=== PATIENT | male | born 1985 | race Caucasian/White ===

== ENCOUNTER 2023-01-03 12:40 | Emergency (ER) | payer MEDICAID ==
[~2023-01-03] VITALS: Ht 180.3 cm; Wt 97.5 kg
[2023-01-03 12:45] VITALS: BP_SYST 122; PULSE 76; RESP 17; TEMP 97; O2SAT 98
[2023-01-03 14:16] LABS: COVID19 ANTIGEN SOFIA FIA NEGATIVE (NEGATIVE)
[2023-01-03 14:22] LABS: INFLUENZA TYPE A Negative (NEGATIVE); INFLUENZA TYPE B NEGATIVE (NEGATIVE)
[2023-01-03] MEDS ORDERED: DEXAMETHASONE SOD PHOSPHATE 10 MG/ML VIAL IM ONE (15:45)
[2023-01-03] MEDS ORDERED: KETOROLAC TROMETHAMINE 60 MG/2 ML VIAL IM ONE (15:45)
[2023-01-03] MEDS ORDERED: guaiFENesin/DEXTROMETHORPHAN 10 ML UDC PO ONE (15:45)
[2023-01-03] MEDS ORDERED: GUAI5SYR PO (16:09)
[2023-01-03] MEDS ORDERED: IBUP-1971 PO (16:09)
[2023-01-03] MEDS ORDERED: ZIT250 PO (16:09)
[2023-01-03 16:21] VITALS: BP_SYST 122; PULSE 76; RESP 17; TEMP 97; O2SAT 98
== END 2023-01-03 16:24 | disposition home or self-care (01) ==
LOC: SED 12:40
DX: J40 Bronchitis, not specified as acute or chronic (principal); J02.9 Acute pharyngitis, unspecified; R05.9 Cough, unspecified; M79.10 Myalgia, unspecified site; Z79.899 Other long term (current) drug therapy; Z20.822 Contact with and (suspected) exposure to COVID-19
CPT/HCPCS: 99284; 87426; 36415; 96372; 87804 ×2; J1100; J1885